=== PATIENT | male | born 1950 | race Caucasian/White ===

== ENCOUNTER 2021-05-01 19:07 | Observation (INO) ==
[2021-05-01] MEDS ORDERED: Nitroglycerin 0.4 MG TAB.SUBL SL PRN (19:38)
[2021-05-01 19:44] LABS: Basophils # 0.1 K/mcL (0.0-0.2); Basophils % 1.1 %; Eosinophils # 0.1 K/mcL (0.0-0.6); Eosinophils % 1.6 %; Hematocrit 38.8 % (37.5-50.1); Hemoglobin 12.4 g/dL (12.9-16.9); Immature Granulocytes % 0.3 % (0-4); Lymphocytes # 2.3 K/mcL (0.6-4.6); Lymphocytes % 31.1 %; Mean Platelet Volume 9.3 fL (9.4-12.4); Monocytes # 0.8 K/mcL (0.0-1.3); Monocytes % 11.2 %; Neutrophils # 4.1 K/mcL (1.6-8.9); Platelet Count 259 K/mcL (140-400); Red Cell Distribution Width 13.6 % (11.5-14.5); Segmented Neutrophils % 54.7 %; White Blood Count 7.5 K/mcL (4.3-11.1)
[2021-05-01 19:55] LABS: Activated Partial Thrombo Time 39.4 Seconds (26.0-36.0)
[2021-05-01 20:11] LABS: Alanine Aminotransferase 12 Units/L (7-52); Albumin 3.7 g/dL (3.5-5.7); Albumin/Globulin Ratio 1.6 (1.1-2.2); Alkaline Phosphatase 84 Units/L (34-104); Aspartate Amino Transferase 16 Units/L (13-39); BUN/Creatinine Ratio 17 (6-26); Bilirubin,Direct 0.1 mg/dL (0.0-0.2); Bilirubin,Indirect 0.4 mg/dL (0.0-1.0); Bilirubin,Total 0.5 mg/dL (0.3-1.0); Blood Urea Nitrogen 20 mg/dL (8-23); Calcium 8.8 mg/dL (8.6-10.3); Carbon Dioxide 30 mEq/L (23-29); Chloride 105 mEq/L (98-107); Globulin 2.3 g/dL (2.4-3.5); Glucose 78 mg/dL (70-105); Lipase 26 Units/L (11-82); Osmolality,Calculated 289 (280-300); Potassium 4.1 mEq/L (3.5-5.1); Sodium 139 mEq/L (136-145); Troponin I < 0.03 ng/mL (< 0.04); eGFR For African Americans > 60 (> 60); eGFR For Non-African Americans > 60 (> 60)
[2021-05-01] MEDS ORDERED: Acetaminophen 325 MG TABLET PO PRN (21:12)
[2021-05-01] MEDS ORDERED: *HR* HYDROcodone/Acet 5/325 mg TABLET PO PRN (21:12)
[2021-05-01] MEDS ORDERED: Naloxone 0.4 MG/ML INJ IVP PRN (21:12)
[2021-05-01] MEDS ORDERED: Melatonin 3 MG TABLET PO PRN (21:12)
[2021-05-01] MEDS ORDERED: *HR* Promethazine 25 MG/ML VIAL IM PRN (21:12)
[2021-05-01] MEDS ORDERED: Ondansetron 4 MG/2 ML VIAL IVP PRN (21:12)
[2021-05-01] MEDS ORDERED: Perflutren Lipid Microsphere 1.3 ML in 0.9 % Sodium Chloride 8.7 ML IVP PRN (21:29)
[2021-05-01] MEDS: Apixaban 5 MG TABLET PO SCH (23:01)
[2021-05-02 01:32] LABS: Basophils # 0.1 K/mcL (0.0-0.2); Basophils % 1.2 %; Eosinophils # 0.2 K/mcL (0.0-0.6); Eosinophils % 2.9 %; Hematocrit 36.9 % (37.5-50.1); Immature Granulocytes % 0.4 % (0-4); Lymphocytes % 37.6 %; Mean Corpuscular HGB Conc 32.5 g/dL (31.6-35.5); Mean Corpuscular Hemoglobin 31.7 pg (28.0-33.3); Mean Corpuscular Volume 97.4 fL (83.0-100.0); Mean Platelet Volume 9.7 fL (9.4-12.4); Monocytes # 0.7 K/mcL (0.0-1.3); Monocytes % 12.5 %; Neutrophils # 2.4 K/mcL (1.6-8.9); Platelet Count 264 K/mcL (140-400); Red Blood Count 3.79 M/mcL (4.19-5.50); Red Cell Distribution Width 13.8 % (11.5-14.5); Segmented Neutrophils % 45.4 %; White Blood Count 5.2 K/mcL (4.3-11.1)
[2021-05-02 01:46] LABS: BUN/Creatinine Ratio 16 (6-26); Blood Urea Nitrogen 18 mg/dL (8-23); Calcium 8.4 mg/dL (8.6-10.3); Carbon Dioxide 31 mEq/L (23-29); Chloride 107 mEq/L (98-107); Chol/HDL Ratio 2.4 (0-4.9); Cholesterol 113 mg/dL (< 200); Glucose 161 mg/dL (70-105); HDL Cholesterol 48 mg/dL (40-59); LDL Cholesterol,Calculated 54 mg/dL (< 100); Magnesium 2.3 mg/dL (1.6-2.6); Osmolality,Calculated 303 (280-300); Potassium 3.9 mEq/L (3.5-5.1); Sodium 144 mEq/L (136-145); Triglycerides 53 mg/dL (< 150); Troponin I < 0.03 ng/mL (< 0.04); eGFR For African Americans > 60 (> 60); eGFR For Non-African Americans > 60 (> 60)
[2021-05-02 03:31] VITALS: O2SAT 99
[2021-05-02] MEDS ORDERED: Regadenoson 0.4 MG/5 ML SYRINGE IVP ONE (06:08)
[2021-05-02] MEDS: Apixaban 5 MG TABLET PO SCH (10:08)
[2021-05-02 11:16] VITALS: BP 166/91; PULSE 64; TEMP 98.3
[2021-05-02] MEDS ORDERED: *HR* Enoxaparin 80 MG/0.8 ML SYRINGE SQ SCH (21:31)
== END 2021-05-02 15:33 | disposition home or self-care (01) ==
LOC: 3BNU 19:07 → EMEROOARM 19:07 → SUATTDRO 21:21 → 3BNU 22:08
PROVIDERS: ADMIT Internal Medicine; ATTEND Registered Nurse